=== PATIENT | female | born 1955 | race Asian ===

== ENCOUNTER 2018-07-28 06:45 | Day surgery (SDC) | payer OTHER ==
[~2018-07-28] VITALS: Ht 149.9 cm; Wt 47.5 kg
[~2018-07-28 06:45] MED LIST: SODIUM CHLORIDE 0.9% 0 ML IV ONE; SODIUM CHLORIDE 0.9% 1,000 ML IV ONE
[2018-07-28] MEDS ORDERED: BENZOCAINE 20% 50 MCG/SPRAY 57 GM TP ONE (06:46)
[2018-07-28] MEDS ORDERED: ALBUTEROL SULFATE 2.5 MG/0.5 ML NEB SOLUTION NEB ONE (06:46)
[2018-07-28] MEDS ORDERED: LIDOCAINE 4% 50 ML SOLUTION TP ONE (06:46)
[2018-07-28] MEDS ORDERED: LIDOCAINE 2% 5 ML JELLY TP ONE (06:46)
[2018-07-28] MEDS ORDERED: MIDAZOLAM HCL 2 MG/2 ML VIAL ONE (07:07)
[2018-07-28] MEDS ORDERED: FentaNYL CITRATE-PF 100 MCG/2 ML VIAL ONE (07:07)
[2018-07-28] MEDS ORDERED: MethylPREDNISolone SOD SUCC 125 MG/2 ML VIAL IVP ONE (08:45)
[2018-07-28] MEDS ORDERED: CALC-754 PO (09:01)
[2018-07-28] MEDS ORDERED: METO25XL PO (09:01)
[2018-07-28] MEDS ORDERED: VITAD1000 PO (09:01)
[2018-07-28] MEDS ORDERED: MethylPREDNISolone SOD SUCC 125 MG/2 ML VIAL ONE (09:01)
[2018-07-28] MEDS ORDERED: LOSA25TA41 PO (09:01)
[2018-07-28] MEDS ORDERED: CLOP75TA32 PO (09:01)
[2018-07-28] MEDS ORDERED: MONT10TA24 PO (09:01)
[2018-07-28] MEDS ORDERED: VITA-328 PO (09:01)
[2018-07-28] MEDS ORDERED: RANI150T7 PO (09:01)
[2018-07-28] MEDS ORDERED: SALM1CAP PO (09:01)
[2018-07-28] MEDS ORDERED: OXYGEN THERAPY IH SCH (20:00)
== END 2018-07-28 09:50 | disposition home or self-care (01) ==
LOC: SURGERY 06:45
PROVIDERS: ATTEND Internal Medicine Critical Care Medicine
DX: J38.4 Edema of larynx (principal); B37.0 Candidal stomatitis; R91.1 Solitary pulmonary nodule; K21.9 Gastro-esophageal reflux disease without esophagitis
CPT/HCPCS: 31623; 31624; 71045; 87015; 87070; 87101; 87205; 87206; 87220; 88108; 88312; J2250; J2930; J3010; J7030

== ENCOUNTER 2023-01-21 06:34 | Day surgery (SDC) | payer OTHER ==
[~2023-01-21] VITALS: Ht 144.8 cm; Wt 49.1 kg
[~2023-01-21 06:34] MED LIST changes: +CALC-754 PO; +CHOL100018 PO; +CLOP75TA32 PO; +LOSA-381 PO; +METO25XL PO; +MONT-40 PO; +RANI150T7 PO; +SALM1CAP PO; -SODIUM CHLORIDE 0.9% 0 ML IV ONE; -SODIUM CHLORIDE 0.9% 1,000 ML IV ONE; +VITA-328 PO
[2023-01-21] MEDS ORDERED: SODIUM CHLORIDE 0.9% 1,000 ML ONE (06:49)
[2023-01-21] MEDS ORDERED: SODIUM CHLORIDE 0.9% 1,000 ML IV ONE (07:00)
[2023-01-21] MEDS ORDERED: MIDAZOLAM HCL 2 MG/2 ML VIAL ONE (07:47)
[2023-01-21] MEDS ORDERED: FentaNYL CITRATE PF 100 MCG/2 ML VIAL ONE (07:47)
[2023-01-21 09:10] VITALS: PULSE 84; RESP 18; O2SAT 96
[2023-01-21] MEDS ORDERED: MethylPREDNISolone SOD SUCC 125 MG/2 ML VIAL IVP ONE (09:30)
[2023-01-21] MEDS ORDERED: LIDOCAINE 4% 50 ML SOLUTION ONE (12:28)
[2023-01-21] MEDS ORDERED: ALBUTEROL SULFATE 2.5 MG/0.5 ML NEB SOLUTION NEB ONE (12:28)
[2023-01-21] MEDS ORDERED: BENZOCAINE 20% 50 MCG/SPRAY 57 GM ONE (12:28)
[2023-01-21] MEDS ORDERED: LIDOCAINE 2% 11 ML JELLY ONE (12:28)
== END 2023-01-21 13:50 | disposition left against medical advice (07) ==
LOC: SURGERY 06:34
PROVIDERS: ATTEND Internal Medicine Critical Care Medicine
DX: R05.3 Chronic cough (principal); R91.1 Solitary pulmonary nodule; J98.09 Other diseases of bronchus, not elsewhere classified; J98.8 Other specified respiratory disorders; J45.909 Unspecified asthma, uncomplicated; Z98.890 Other specified postprocedural states; I10 Essential (primary) hypertension; Z79.899 Other long term (current) drug therapy
CPT/HCPCS: 31623; 88112; 87206; 87101; 87220; 87070; 31624; 94640; 71045; 87015; J3010; J2250; J2930; Q9967; J7030; J7613; Z7610